=== PATIENT | male | born 1960 | race Caucasian/White ===

== ENCOUNTER 2022-05-28 11:07 | Day surgery (SDC) | payer MEDICARE ==
[~2022-05-28] VITALS: Ht 182.9 cm; Wt 94.8 kg
[2022-05-28] MEDS ORDERED: ATEN25 (11:45)
[2022-05-28] MEDS ORDERED: ATOR20 (11:45)
[2022-05-28] MEDS ORDERED: CENTRUM SILVER1 EAC2 (11:46)
[2022-05-28] MEDS ORDERED: DOC250 (11:46)
[2022-05-28] MEDS ORDERED: Prinivil10 MG (11:46)
[2022-05-28] MEDS ORDERED: KETO10 (11:46)
[2022-05-28] MEDS ORDERED: GABA100 (11:46)
[2022-05-28] MEDS ORDERED: TIZA4 (11:47)
[2022-05-28] MEDS ORDERED: TRAZ50 (11:47)
[2022-05-28] MEDS ORDERED: ROPI1 (11:47)
== END 2022-05-28 14:10 | disposition home or self-care (01) ==
LOC: ORSCSDS 11:07
DX: R19.5 Other fecal abnormalities (principal); D12.3 Benign neoplasm of transverse colon; D12.8 Benign neoplasm of rectum; I10 Essential (primary) hypertension; Z79.899 Other long term (current) drug therapy; Z79.82 Long term (current) use of aspirin; G47.33 Obstructive sleep apnea (adult) (pediatric); Z87.891 Personal history of nicotine dependence
CPT/HCPCS: 88305; J2704; J7120